=== PATIENT | male | born 1950 | race Caucasian/White ===

== ENCOUNTER 2024-08-18 09:06 | Day surgery (SDC) | payer OTHER, SELFPAY ==
[2024-08-18] VITALS (15 sets, daily range): BP systolic 111–155; BP diastolic 58–85; BMI 33.4
[2024-08-18] MEDS: NSS 290 ML IV (11:02)
[2024-08-18] MEDS: LOW STRENGTH ASPIRIN 81 MG PO (11:02)
--- NOTE | 2024-08-18 16:43 | PTCARENOTE ---
1600-patient dressed and ready for discharge, sitting in wheelchair. While removed left hand INT patient began blinking quickly multiple times and then rubbed his fore head. Daughter called for interpretive services. She states that he was
feeling dizzy and lightheaded at that time. Daughter states, 'this has happened at his home sometimes too.' BP obtained. 150/75. Patient continues sitting in chair. MEAL PACKER notified and over to see patient prior to discharge. BP repeated. 146/77.
Patient states he is no longer dizzy and would like to continue to be discharged. MEAL PACKER agreeable for patient to be discharged. Patient verbalizes c/o intermittent episodes of right radial site discomfort. Patient needing frequent reminding of
activity restrictions related to right wrist. Patient discharged home via wheelchair at 1620.
--- NOTE | 2024-08-18 20:09 | ITS.CL.PN ---
[facility] - Procedure Note
Procedure
Procedure Note:
CARDIAC CATHETERIZATION REPORT
Date of Procedure: 08/18/2024
Referring: Dr. Omega Hernandez MD
Indication: anginal chest pain, positive cardiac stress test
PROCEDURE(S)
1. left heart catheterization
2. coronary angiography
ACCESS: 6F right radial artery (closure: radial band)
CATHETERS
1. 6F JR4
2. 6F JL3.5
MODERATE SEDATION: 30 minutes of moderate sedation was utilized. An independent durable medical equipment repairer was present to assist with and help manage the patient's level of consciousness and physiologic status.
HEMODYNAMIC DATA
LV 118/10 (EDP 13) mmHg
AO 102/64 (mean 81) mmHg
CORONARY ANGIOGRAPHY
Dominance: Right
LM: Large with minimal disease
LAD: Large vessel with a proximal total occlusion. The vessel is supplied by robust epicardial collaterals from the apical RPDA, acute marginal branch, and conus branch. There do not appear to be interventional septal collaterals. The collateralized
LAD has mild diffuse disease and gives rise to 1 moderate caliber diagonal branch. The proximal LAD cap is tapered, but with a small septal taking off near the end of the tapered portion. There does not appear to be significant vessel calcification
and it is straight, but the RING CONDUCTOR segment is of unclear lenght.
LCx: Large vessel giving rise to a moderate caliber OM1/ramus, small OM 2, large OM 3, and moderate caliber LPL branch.
RCA: Large vessel giving rise to a moderate caliber RPDA.
RADIATION: dose 595.17 mGy; DAP 37.9148 Gy*cm2; fluoroscopy time 11.5 min
CONCLUSIONS
1. Single-vessel coronary artery disease as described with proximal LAD RING CONDUCTOR supplied by robust right to left epicardial collaterals.
2. Normal LV filling pressure and no aortic stenosis.
RECOMMENDATIONS
1. Medical management of single-vessel CAD. Will initiate metoprolol 25 mg PO daily.
2. Should the patient have medication refractory angina, RING CONDUCTOR PCI of the LAD could be considered. An initial antegrade wire escalation attempt with dual arterial access would be relatively low risk. If unsuccessful, referral to a dedicated RING CONDUCTOR
ultrasonic seaming machine operator for antegrade dissection reentry or retrograde RING CONDUCTOR PCI could be considered.
Copy to: Dr. Omega Hernandez MD (air brush decorator); Dr. Rosanna Palomino MD (PCP)
Signed: Steve Hernandez MD, PhD
== END 2024-08-18 16:20 | disposition home or self-care (01) ==
LOC: CATH 09:06
PROVIDERS: ATTENDING PHYSICIAN Student in an Organized Health Care Education/Training Program; FAMILY PHYSICIAN Internal Medicine; OTHER PHYSICIAN Internal Medicine Cardiovascular Disease
DX: I25.119 Atherosclerotic heart disease of native coronary artery with unspecified angina pectoris (principal); Z79.82 Long term (current) use of aspirin; Z79.899 Other long term (current) drug therapy
CPT/HCPCS: 99152; 93458; 99153; C1769; C1894; Q9967